=== PATIENT | male | born 1995 | race Caucasian/White ===

== ENCOUNTER 2017-05-14 00:03 | Emergency (ER) | payer MEDICAID ==
[~2017-05-14] VITALS: Ht 175.3 cm; Wt 77.3 kg
[2017-05-14 00:59] LABS: BASOPHILS % (AUTO) 0.3 % (0.0-2.0); EOSINOPHILS % (AUTO) 0.7 % (1.0-6.0); HEMATOCRIT 44.2 % (41-53); HEMOGLOBIN 15.3 g/dL (13.5-17.5); LYMPHOCYTES # (AUTO) 3.8 K/uL (1.0-4.8); LYMPHOCYTES % (AUTO) 23.7 % (22.0-44.0); MEAN CORPUSCULAR HEMOGLOBIN 29.4 pg (26.0-34.0); MEAN CORPUSCULAR HGB CONC 34.5 G/dL (31.0-37.0); MEAN CORPUSCULAR VOLUME 85 fL (80-100); MONOCYTES # (AUTO) 1.5 K/uL (0.1-1.0); MONOCYTES % (AUTO) 9.1 % (2.0-9.0); NEUTROPHILS # (AUTO) 10.6 K/uL (1.8-7.7); NEUTROPHILS % (AUTO) 66.2 % (40.0-70.0); PLATELET COUNT (AUTO) 275 K/uL (150-450); RED CELL DISTRIBUTION WIDTH 14.4 % (11.5-14.5)
[2017-05-14 01:11] LABS: ANION GAP 13 mmol/L (8-16); CALCIUM, TOTAL 9.6 mg/dL (8.8-10.5); CARBON DIOXIDE 27 mmol/L (22-29); CHLORIDE 100 mmol/L (98-107); CREATININE 1.27 mg/dL (0.60-1.30); GLOMERULAR FILTR. RATE CALC > 60 mL/min (>60); GLUCOSE,RANDOM 84 mg/dL (70-110); POTASSIUM 3.9 mmol/L (3.5-5.1); SODIUM SERUM 140 mmol/L (136-145); UREA NITROGEN, BLOOD 13 mg/dL (7-18)
[2017-05-14 01:26] LABS: ALANINE AMINOTRANSFERASE 23 U/L (12-78); ALBUMIN 4.5 g/dL (3.4-5.0); ALKALINE PHOSPHATASE 89 U/L (46-116); ASPARTATE AMINOTRANSFERASE 27 U/L (15-37); BILIRUBIN,TOTAL 0.9 mg/dL (0.1-1.0); TOTAL PROTEIN, SERUM 7.9 g/dL (6.4-8.2)
[2017-05-14 01:36] LABS: AMPHET/METH SCREEN,URINE POSITIVE (NEGATIVE); BARBITURATE SCREEN, URINE NEGATIVE (NEGATIVE); BENZODIAZEPINES SCREEN,URINE NEGATIVE (NEGATIVE); CANNABINOID SCREEN,URINE POSITIVE (NEGATIVE); COCAINE SCREEN,URINE POSITIVE (NEGATIVE); METHADONE SCREEN, URINE NEGATIVE (NEGATIVE); OPIATE SCREEN,URINE POSITIVE (NEGATIVE)
[2017-05-14 01:37] LABS: PHENCYCLIDINE SCREEN,URINE NEGATIVE (NEGATIVE)
[2017-05-14] MEDS ORDERED: HALOPERIDOL LACTATE 5 MG/ML VIAL IM ONE (02:00)
[2017-05-14] MEDS ORDERED: LORazepam 2 MG/ML VIAL IM ONE (02:00)
[2017-05-14 03:42] VITALS: BP 109/63
== END 2017-05-14 03:45 | disposition home or self-care (01) ==
LOC: EMS 00:04
DX: F41.9 Anxiety disorder, unspecified (principal); F19.10 Other psychoactive substance abuse, uncomplicated; F31.9 Bipolar disorder, unspecified; F20.9 Schizophrenia, unspecified; F17.210 Nicotine dependence, cigarettes, uncomplicated
CPT/HCPCS: 36415; 80053; 80307; 85025; 93005; 96372; 99285; G0480; J1630; J2060

== ENCOUNTER 2023-07-06 06:58 | Inpatient (IN) | payer MEDICAID ==
[~2023-07-06] VITALS: Ht 175.3 cm; Wt 77.3 kg
[2023-07-06 08:04] LABS: BASOPHILS % (AUTO) 0.6 % (0.0-2.0); EOSINOPHILS % (AUTO) 2.1 % (1.0-6.0); HEMATOCRIT 42.9 % (41-53); HEMOGLOBIN 14.5 g/dL (13.5-17.5); LYMPHOCYTES # (AUTO) 1.9 K/uL (1.0-4.8); LYMPHOCYTES % (AUTO) 14.1 % (22.0-44.0); MEAN CORPUSCULAR HEMOGLOBIN 29.5 pg (26.0-34.0); MEAN CORPUSCULAR HGB CONC 33.8 G/dL (31.0-37.0); MEAN CORPUSCULAR VOLUME 88 fL (80-100); MONOCYTES # (AUTO) 0.9 K/uL (0.1-1.0); NEUTROPHILS # (AUTO) 10.2 K/uL (1.8-7.7); NEUTROPHILS % (AUTO) 76.2 % (40.0-70.0); PLATELET COUNT (AUTO) 253 K/uL (150-450); RED CELL DISTRIBUTION WIDTH 14.5 % (11.5-14.5); WHITE BLOOD COUNT (AUTO) 13.4 K/uL (4.5-11.0)
[2023-07-06 08:14] LABS: ALCOHOL, BLOOD (SERUM) < 3 mg/dL (0-10); ANION GAP 11 mmol/L (8-16); CALCIUM, TOTAL 8.8 mg/dL (8.8-10.5); CARBON DIOXIDE 25 mmol/L (22-29); CHLORIDE 102 mmol/L (98-107); CREATININE 0.97 mg/dL (0.60-1.30); GLOMERULAR FILTR. RATE CALC > 60 mL/min (>60); GLUCOSE,RANDOM 89 mg/dL (70-110); POTASSIUM 3.9 mmol/L (3.5-5.1); SODIUM SERUM 138 mmol/L (136-145); UREA NITROGEN, BLOOD 13 mg/dL (7-18)
[2023-07-06 08:24] LABS: ALANINE AMINOTRANSFERASE 188 U/L (12-78); ALBUMIN 3.5 g/dL (3.4-5.0); ALKALINE PHOSPHATASE 92 U/L (46-116); ASPARTATE AMINOTRANSFERASE 85 U/L (15-37); BILIRUBIN,TOTAL 0.9 mg/dL (0.1-1.0); TOTAL PROTEIN, SERUM 7.9 g/dL (6.4-8.2)
[2023-07-06] MEDS ORDERED: ZOLPIDEM TARTRATE 10 MG TABLET PO PRN (10:15)
[2023-07-06] MEDS ORDERED: HALOPERIDOL 5 MG TABLET PO PRN (10:15)
[2023-07-06] MEDS ORDERED: LORazepam 2 MG TABLET PO PRN (10:15)
[2023-07-06 10:37] LABS: COVID AG,FIA SOURCE NASAL SWAB
[2023-07-06 10:57] LABS: SARS-COV2 (COVID) ANTIGEN,FIA Negative (Negative)
[2023-07-06] MEDS ORDERED: ONDANSETRON HCL 4 MG TABLET PO PRN (16:00)
[2023-07-06] MEDS ORDERED: MAG HYDROX/ALUMINUM HYD/SIMETH ES 30 ML SUSPENSION UDCUP PO PRN (16:00)
[2023-07-06] MEDS ORDERED: ACETAMINOPHEN 325 MG TABLET PO PRN (16:00)
[2023-07-06] MEDS ORDERED: BENZOCAINE/MENTHOL LOZENGE PO PRN (16:00)
[2023-07-06] MEDS ORDERED: PETROLATUM,WHITE 28 GM JELLY TP PRN (16:00)
[2023-07-06] MEDS ORDERED: OMEPRAZOLE 20 MG CAPSULE PO PRN (16:00)
[2023-07-06] MEDS ORDERED: MAGNESIUM HYDROXIDE SUSPENSION 30 ML UDCUP PO PRN (16:00)
[2023-07-06] MEDS ORDERED: DOCUSATE SODIUM 100 MG CAPSULE PO PRN (16:00)
[2023-07-06] MEDS ORDERED: CloNIDine HCL 0.1 MG TABLET PO PRN (16:00)
[2023-07-06] MEDS ORDERED: LOPERAMIDE HCL 2 MG CAPSULE PO PRN (16:00)
[2023-07-06] MEDS ORDERED: BENZOCAINE 10% 7 GM GEL TP PRN (16:00)
[2023-07-06] MEDS ORDERED: BACITRACIN 28 GM OINTMENT TP PRN (16:00)
[2023-07-06] MEDS ORDERED: ALBUTEROL SULFATE HFA 90 MCG/PUFF 8 GM INHALER IH PRN (16:00)
[2023-07-06] MEDS: IBUPROFEN 600 MG TABLET PO PRN (16:45)
[2023-07-06 17:03] VITALS: BP 130/76; PULSE 98; RESP 18; TEMP 98.6
[2023-07-06] MEDS: CHLORHEXIDINE GLUCONATE 0.12% 15 ML UDCUP ORAL RINSE PO SCH (17:30)
[2023-07-06 18:06] VITALS: RESP 17
[2023-07-06 21:19] VITALS: BP 145/89; PULSE 83; RESP 18; TEMP 98.3
[2023-07-07 00:35] VITALS: BP 127/83; PULSE 105; RESP 20; TEMP 99.5
[2023-07-07] MEDS: NICOTINE 21 MG/24 HOUR PATCH TD SCH (09:00)
[2023-07-07] MEDS: AMOXICILLIN TRIHYDRATE 500 MG CAPSULE PO SCH (09:00)
== END 2023-07-07 08:08 | disposition short-term general hospital (02) | DRG 750 ==
LOC: EMS 06:59 → B2S 10:54
PROVIDERS: ADMIT Psychiatry & Neurology Psychiatry; ATTEND Psychiatry & Neurology Psychiatry
DX: F25.9 Schizoaffective disorder, unspecified (principal); R45.851 Suicidal ideations; K05.6 Periodontal disease, unspecified; Z20.822 Contact with and (suspected) exposure to COVID-19; K59.00 Constipation, unspecified; F15.10 Other stimulant abuse, uncomplicated; F17.200 Nicotine dependence, unspecified, uncomplicated; G47.00 Insomnia, unspecified
CPT/HCPCS: 80053; 85025; 99285; G0480

== ENCOUNTER 2023-08-22 09:44 | Emergency (ER) | payer OTHER ==
[~2023-08-22] VITALS: Ht 175.3 cm; Wt 79.5 kg
[~2023-08-22 09:44] MED LIST: DIPH-1243 PO; VANC1.5P11 IVP
[2023-08-22 09:47] VITALS: TEMP 98.2
[2023-08-22 09:57] VITALS: BP 133/82; PULSE 98; RESP 18
== END 2023-08-22 10:40 | disposition home or self-care (01) ==
LOC: EMS 09:44
DX: Z45.2 Encounter for adjustment and management of vascular access device (principal); F15.10 Other stimulant abuse, uncomplicated; F17.210 Nicotine dependence, cigarettes, uncomplicated; Z88.6 Allergy status to analgesic agent; Z88.8 Allergy status to other drugs, medicaments and biological substances
CPT/HCPCS: 99281; Z7502

== ENCOUNTER 2023-09-06 18:52 | Emergency (ER) | payer OTHER ==
[~2023-09-06] VITALS: Ht 175.3 cm; Wt 79.5 kg
[2023-09-06 19:28] VITALS: TEMP 98.5
[2023-09-06 20:10] LABS: BAND NEUTROPHILS % (MANUAL) 0 % (0-5)
[2023-09-06 20:16] LABS: HEMATOCRIT 43.7 % (41-53); HEMOGLOBIN 14.5 g/dL (13.5-17.5); MEAN CORPUSCULAR HEMOGLOBIN 28.1 pg (26.0-34.0); MEAN CORPUSCULAR HGB CONC 33.3 G/dL (31.0-37.0); MEAN CORPUSCULAR VOLUME 84 fL (80-100); PLATELET COUNT (AUTO) 394 K/uL (150-450); RED BLOOD CELL COUNT(AUTO) 5.17 MIL/uL (4.50-5.90); RED CELL DISTRIBUTION WIDTH 15.7 % (11.5-14.5); WHITE BLOOD COUNT (AUTO) 10.4 K/uL (4.5-11.0)
[2023-09-06 20:16] LABS: COVID AG,FIA SOURCE NASAL SWAB
[2023-09-06 20:23] LABS: ANION GAP 10 mmol/L (8-16); CALCIUM, TOTAL 9.9 mg/dL (8.8-10.5); CARBON DIOXIDE 26 mmol/L (22-29); CHLORIDE 105 mmol/L (98-107); GLOMERULAR FILTR. RATE CALC > 60 mL/min (>60); GLUCOSE,RANDOM 101 mg/dL (70-110); POTASSIUM 3.8 mmol/L (3.5-5.1); SODIUM SERUM 141 mmol/L (136-145); UREA NITROGEN, BLOOD 17 mg/dL (7-18)
[2023-09-06 20:41] LABS: SARS-COV2 (COVID) ANTIGEN,FIA Negative (Negative)
[2023-09-06 20:46] LABS: BASOPHILS % (MANUAL) 1 % (0-2); EOSINOPHILS % (MANUAL) 3 % (1-6); LYMPHOCYTES % (MANUAL) 33 % (22-44); MONOCYTES % (MANUAL) 9 % (2-9); SEGMENTED NEUTROPHILS % 54 % (40-70); TOTAL CELLS COUNTED 100
[2023-09-06 20:47] LABS: RBC MORPHOLOGY COMMENT NORMAL RBC MORPH
[2023-09-06 20:48] VITALS: BP 121/76; PULSE 106; RESP 18
[2023-09-06 20:59] LABS: INFLUENZA TYPE A NEGATIVE FOR TYPE A (NEGATIVE); INFLUENZA TYPE B NEGATIVE FOR TYPE B (NEGATIVE)
[2023-09-06] MEDS: LORazepam 2 MG TABLET PO ONE (21:33)
== END 2023-09-06 22:00 | disposition home or self-care (01) ==
LOC: EMS 18:57
DX: F15.10 Other stimulant abuse, uncomplicated (principal); F41.9 Anxiety disorder, unspecified; F17.210 Nicotine dependence, cigarettes, uncomplicated; Z88.6 Allergy status to analgesic agent; Z88.8 Allergy status to other drugs, medicaments and biological substances; Z20.822 Contact with and (suspected) exposure to COVID-19
CPT/HCPCS: 71045; 80048; 85007; 85027; 87804; 93005; 99285; 36415-L1; 36415-TC

== ENCOUNTER 2024-03-20 19:51 | Emergency (ER) | payer OTHER ==
[~2024-03-20] VITALS: Ht 175.3 cm; Wt 81.8 kg
[~2024-03-20 19:51] MED LIST changes: -DIPH-1243 PO; +DIVA-153 PO; +MELA5TAB40 PO; +NALT50TA33 PO; +OLAN5TAB94 PO; -VANC1.5P11 IVP
[2024-03-20 20:17] VITALS: TEMP 99.4
[2024-03-21] MEDS ORDERED: AMOX250C4 PO (00:49)
[2024-03-21] MEDS: LORazepam 1 MG TABLET PO ONE (00:58)
[2024-03-21] MEDS: DEXAMETHASONE 4 MG TABLET PO ONE (01:00)
[2024-03-21 01:05] VITALS: BP 131/103; PULSE 96; RESP 20; O2SAT 98
== END 2024-03-21 01:16 | disposition home or self-care (01) ==
LOC: EMS 19:51
DX: J02.9 Acute pharyngitis, unspecified (principal); F20.9 Schizophrenia, unspecified; F31.9 Bipolar disorder, unspecified; F17.210 Nicotine dependence, cigarettes, uncomplicated; F12.90 Cannabis use, unspecified, uncomplicated; F15.90 Other stimulant use, unspecified, uncomplicated
CPT/HCPCS: 99283

== ENCOUNTER 2024-08-11 16:44 | Inpatient (IN) | payer MEDICAID ==
[~2024-08-11] VITALS: Ht 175.3 cm; Wt 78.9 kg
[~2024-08-11 16:44] MED LIST changes: +AMOX250C4 PO
[2024-08-11 18:00] LABS: GLUCOMETER DEV NAME(LOC) POC.BV; POC SARS-COV2 AG, FIA NEGATIVE (NEGATIVE)
[2024-08-11] MEDS: ZOLPIDEM TARTRATE 10 MG TABLET PO PRN (20:09)
[2024-08-11] MEDS: LORazepam 2 MG TABLET PO PRN (20:09)
[2024-08-11] MEDS ORDERED: ACETAMINOPHEN 325 MG TABLET PO PRN (20:15)
[2024-08-11] MEDS ORDERED: ALBUTEROL SULFATE HFA 90 MCG/PUFF 8 GM INHALER IH PRN (20:15)
[2024-08-11] MEDS ORDERED: PETROLATUM,WHITE 28 GM JELLY TP PRN (20:15)
[2024-08-11] MEDS ORDERED: ONDANSETRON 4 MG TABLET PO PRN (20:15)
[2024-08-11] MEDS ORDERED: LOPERAMIDE HCL 2 MG CAPSULE PO PRN (20:15)
[2024-08-11] MEDS ORDERED: DOCUSATE SODIUM 100 MG CAPSULE PO PRN (20:15)
[2024-08-11] MEDS ORDERED: NICOTINE 14 MG/24 HOUR PATCH TD PRN (20:15)
[2024-08-11] MEDS ORDERED: GuaiFENesin/D-METHORPHAN [SUGAR-FREE] 200-20MG/10 ML SYRUP UDCUP PO PRN (20:15)
[2024-08-11] MEDS ORDERED: MAGNESIUM HYDROXIDE SUSPENSION 30 ML UDCUP PO PRN (20:15)
[2024-08-11] MEDS ORDERED: MAG HYDROX/ALUMINUM HYD/SIMETH ES 30 ML SUSPENSION UDCUP PO PRN (20:15)
[2024-08-11] MEDS ORDERED: CloNIDine HCL 0.1 MG TABLET PO PRN (20:15)
[2024-08-11 20:48] VITALS: BP 122/77; PULSE 89; RESP 16; TEMP 97.7; O2SAT 100
[2024-08-12 08:35] LABS: BASOPHILS % (AUTO) 0.1 % (0.0-2.0); EOSINOPHILS % (AUTO) 2.9 % (1.0-6.0); HEMATOCRIT 39.2 % (41-53); LYMPHOCYTES # (AUTO) 1.7 K/uL (1.0-4.8); LYMPHOCYTES % (AUTO) 19.7 % (22.0-44.0); MEAN CORPUSCULAR HEMOGLOBIN 27.1 pg (26.0-34.0); MEAN CORPUSCULAR HGB CONC 33.2 G/dL (31.0-37.0); MEAN CORPUSCULAR VOLUME 82 fL (80-100); MONOCYTES # (AUTO) 0.6 K/uL (0.1-1.0); MONOCYTES % (AUTO) 7.5 % (2.0-9.0); NEUTROPHILS % (AUTO) 69.8 % (40.0-70.0); PLATELET COUNT (AUTO) 345 K/uL (150-450); RED CELL DISTRIBUTION WIDTH 15.9 % (11.5-14.5); WHITE BLOOD COUNT (AUTO) 8.6 K/uL (4.5-11.0)
[2024-08-12 08:38] VITALS: BP 116/80; PULSE 88; RESP 18; TEMP 98.2; O2SAT 87
[2024-08-12 08:39] LABS: HEMOGLOBIN A1C 5.7 % (3.8-5.6)
[2024-08-12 08:55] LABS: ALANINE AMINOTRANSFERASE 90 U/L (12-78); ALBUMIN 2.7 g/dL (3.4-5.0); ALKALINE PHOSPHATASE 116 U/L (46-116); ANION GAP 7 mmol/L (8-16); ASPARTATE AMINOTRANSFERASE 42 U/L (15-37); BILIRUBIN,TOTAL 0.3 mg/dL (0.1-1.0); CALCIUM, TOTAL 8.6 mg/dL (8.8-10.5); CARBON DIOXIDE 28 mmol/L (22-29); CHLORIDE 103 mmol/L (98-107); CHOL/HDL RATIO 3.1 (4.2-7.3); CHOLESTEROL 146 mg/dL (131-200); CREATININE 0.76 mg/dL (0.60-1.30); FREE T4 (FREE THYROXINE) 1.07 ng/dL (0.76-1.46); GLOMERULAR FILTR. RATE CALC > 60 mL/min (>60); GLUCOSE,RANDOM 111 mg/dL (70-110); HDL CHOLESTEROL 47 mg/dL (40-60); LDL CHOL (CALC.) 87 mg/dL (0-130); POTASSIUM 4.1 mmol/L (3.5-5.1); SODIUM SERUM 138 mmol/L (136-145); THYROID STIMULATING HORMONE 0.46 uIU/mL (0.36-3.74); TOTAL PROTEIN, SERUM 7.3 g/dL (6.4-8.2); TRIGLYCERIDES 62 mg/dL (15-150); UREA NITROGEN, BLOOD 8 mg/dL (7-18)
[2024-08-12 09:39] VITALS: BP 121/78; PULSE 100; RESP 18; TEMP 97.5; O2SAT 96
[2024-08-12] MEDS: NALTREXONE HCL 50 MG TABLET PO SCH (15:10)
[2024-08-12] MEDS: haloperidoL 5 MG TABLET PO PRN (17:44)
[2024-08-12] MEDS ORDERED: ChlorproMAZINE HCL 50 MG/2 ML AMP ONE (19:31)
[2024-08-12] MEDS: DiphenhydrAMINE HCL 50 MG/ML VIAL IM ONE (19:42)
[2024-08-12] MEDS: ChlorproMAZINE HCL 50 MG/2 ML AMP IM ONE (19:42)
[2024-08-12 20:15] VITALS: BP 133/73; PULSE 92; RESP 17; TEMP 97.3; O2SAT 100
[2024-08-12] MEDS: DIVALPROEX SODIUM 500 MG ER TABLET PO SCH (20:33)
[2024-08-12] MEDS: MELATONIN 5 MG TABLET PO SCH (20:33)
[2024-08-12] MEDS: OLANZapine 7.5 MG TABLET PO SCH (20:33)
[2024-08-13 08:11] VITALS: BP 124/96; PULSE 98; RESP 18; TEMP 97.5; O2SAT 100
[2024-08-13 20:32] VITALS: BP 129/82; PULSE 77; RESP 18; TEMP 97.8; O2SAT 99
[2024-08-14 08:53] VITALS: BP 118/70; PULSE 89; RESP 17; TEMP 97.6; O2SAT 99
[2024-08-14 20:04] VITALS: BP 108/64; PULSE 86; RESP 16; TEMP 98.2; O2SAT 98
[2024-08-15 08:12] VITALS: BP 114/61; PULSE 84; RESP 17; TEMP 97.6; O2SAT 98
[2024-08-15 20:28] VITALS: BP 121/71; PULSE 92; RESP 16; TEMP 97.9; O2SAT 99
[2024-08-16 08:20] VITALS: BP 117/60; PULSE 74; RESP 17; TEMP 97.2; O2SAT 98
[2024-08-16] MEDS: IBUPROFEN 400 MG TABLET PO PRN (15:49)
== END 2024-08-16 17:30 | disposition left against medical advice (07) | DRG 750 ==
LOC: B3A 17:39
PROVIDERS: ADMIT Psychiatry & Neurology Child & Adolescent Psychiatry; ATTEND Psychiatry & Neurology Child & Adolescent Psychiatry
PROC: GZ52ZZZ Individual Psychotherapy, Cognitive (ICD-10-PCS; principal; 2024-08-12)
DX: F25.9 Schizoaffective disorder, unspecified (principal); D64.9 Anemia, unspecified; F19.10 Other psychoactive substance abuse, uncomplicated; G47.00 Insomnia, unspecified; I10 Essential (primary) hypertension; Z87.01 Personal history of pneumonia (recurrent); Z88.1 Allergy status to other antibiotic agents
CPT/HCPCS: 71046; 80053; 80061; 80164; 83036; 84439; 84443; 85025; J1200; J3230; 36415-L1; 36415-TC

== ENCOUNTER 2025-02-03 16:14 | Inpatient (IN) | payer MEDICAID, OTHER ==
[~2025-02-03] VITALS: Ht 175.3 cm; Wt 69.0 kg
[~2025-02-03 16:14] MED LIST changes: -AMOX250C4 PO
[2025-02-03 17:02] LABS: PLATELET COUNT (AUTO) 307 K/uL (150-450); RED BLOOD CELL COUNT(AUTO) 4.04 MIL/uL (4.50-5.90); RED CELL DISTRIBUTION WIDTH 17.4 % (11.5-14.5); WHITE BLOOD COUNT (AUTO) 15.2 K/uL (4.5-11.0)
[2025-02-03 17:06] LABS: CALCIUM, TOTAL 8.7 mg/dL (8.8-10.5); CREATININE 1.48 mg/dL (0.60-1.30); GLOMERULAR FILTR. RATE CALC 56.0 mL/min (>60); GLUCOSE,RANDOM 105.0 mg/dL (70-110); SODIUM SERUM 141.0 mmol/L (136-145); UREA NITROGEN, BLOOD 24.0 mg/dL (7-18)
[2025-02-03 17:13] LABS: PLATELET MORPHOLOGY COMMENT LARGE PLTS PRESENT; RBC MORPHOLOGY COMMENT NORMAL RBC MORPH
[2025-02-03 17:16] LABS: COVID AG,FIA SOURCE NASAL SWAB
[2025-02-03 17:39] LABS: SARS-COV2 (COVID) ANTIGEN,FIA Negative (Negative)
[2025-02-03 20:42] VITALS: O2SAT 99
[2025-02-03 22:19] VITALS: BP 133/93; PULSE 84; RESP 18; TEMP 97.8; O2SAT 100
[2025-02-03] MEDS: ZOLPIDEM TARTRATE 10 MG TABLET PO PRN (23:06)
[2025-02-03] MEDS ORDERED: INFLUENZA VIRUS VACCINE TVS (6MO+) 2025-26/PF 45 MCG/0.5 ML SYRINGE IM. ONE (23:30)
[2025-02-04 08:37] VITALS: BP 143/91; PULSE 95; RESP 18; TEMP 98.6; O2SAT 99
[2025-02-04 08:58] LABS: CHOL/HDL RATIO 2.2 (4.2-7.3); LDL CHOL (CALC.) 65.0 mg/dL (0-130)
[2025-02-04] MEDS ORDERED: DOCUSATE SODIUM 100 MG CAPSULE PO PRN (09:00)
[2025-02-04] MEDS ORDERED: OMEPRAZOLE 20 MG CAPSULE PO PRN (09:00)
[2025-02-04] MEDS ORDERED: BACITRACIN 28 GM OINTMENT TP PRN (09:00)
[2025-02-04] MEDS ORDERED: PETROLATUM,WHITE 28 GM JELLY TP PRN (09:00)
[2025-02-04] MEDS ORDERED: LOPERAMIDE HCL 2 MG CAPSULE PO PRN (09:00)
[2025-02-04] MEDS ORDERED: ALBUTEROL SULFATE HFA 90 MCG/PUFF 8 GM INHALER IH PRN (09:00)
[2025-02-04] MEDS ORDERED: ACETAMINOPHEN 325 MG TABLET PO PRN (09:00)
[2025-02-04] MEDS ORDERED: ONDANSETRON 4 MG TABLET PO PRN (09:00)
[2025-02-04] MEDS ORDERED: BENZOCAINE/MENTHOL [CEPACOL] LOZENGE PO PRN (09:00)
[2025-02-04] MEDS ORDERED: MAG HYDROX/ALUMINUM HYD/SIMETH ES 30 ML SUSPENSION UDCUP PO PRN (09:00)
[2025-02-04] MEDS ORDERED: MAGNESIUM HYDROXIDE SUSPENSION 30 ML UDCUP PO PRN (09:00)
[2025-02-04] MEDS ORDERED: IBUPROFEN 600 MG TABLET PO PRN (09:00)
[2025-02-04 20:23] VITALS: BP 144/80; PULSE 67; RESP 18; TEMP 98.3; O2SAT 100
[2025-02-04] MEDS: OLANZapine 7.5 MG TABLET PO SCH (20:52)
[2025-02-04] MEDS: DIVALPROEX SODIUM 500 MG DR TABLET PO SCH (20:52)
[2025-02-05 03:08] LABS: HEPATITIS C AB (EIA) Reactive (Non Reactive)
[2025-02-05 08:28] LABS: PLATELET COUNT (AUTO) 300 K/uL (150-450); RED BLOOD CELL COUNT(AUTO) 4.21 MIL/uL (4.50-5.90); RED CELL DISTRIBUTION WIDTH 17.1 % (11.5-14.5); WHITE BLOOD COUNT (AUTO) 8.4 K/uL (4.5-11.0)
[2025-02-05 08:45] LABS: ASPARTATE AMINOTRANSFERASE 50 U/L (15-37); CALCIUM, TOTAL 8.7 mg/dL (8.8-10.5); CREATININE 0.75 mg/dL (0.60-1.30); GLOMERULAR FILTR. RATE CALC > 60 mL/min (>60); GLUCOSE,RANDOM 101 mg/dL (70-110); PHOSPHORUS 2.5 mg/dL (2.5-4.9); SODIUM SERUM 140 mmol/L (136-145); TOTAL PROTEIN, SERUM 7.5 g/dL (6.4-8.2); UREA NITROGEN, BLOOD 11 mg/dL (7-18)
[2025-02-05 09:36] VITALS: BP 123/89; PULSE 73; RESP 18; TEMP 98; O2SAT 99
[2025-02-05] MEDS: NICOTINE POLACRILEX 4 MG LOZENGE PO PRN (12:40)
[2025-02-05 20:15] VITALS: BP 130/79; PULSE 78; RESP 18; TEMP 98.9; O2SAT 98
[2025-02-06 08:12] VITALS: BP 137/86; PULSE 85; RESP 18; TEMP 98.1; O2SAT 98
[2025-02-06 20:05] VITALS: BP 143/82; PULSE 85; RESP 20; TEMP 97.3; O2SAT 100
[2025-02-07 08:18] VITALS: BP 143/92; PULSE 73; RESP 18; TEMP 98; O2SAT 100
[2025-02-07 17:07] LABS: HEPATITIS C RT-PCR,QNT 2360000 IU/mL
[2025-02-07 20:12] VITALS: BP 145/73; PULSE 86; RESP 20; TEMP 98; O2SAT 100
[2025-02-08 08:32] VITALS: BP 134/74; PULSE 86; RESP 18; TEMP 97.9; O2SAT 98
[2025-02-08] MEDS ORDERED: DIVA-112 PO (16:29)
[2025-02-08] MEDS ORDERED: OLAN7.5T22 PO (16:30)
== END 2025-02-08 17:58 | disposition home or self-care (01) | DRG 750 ==
LOC: EMS 16:16 → B3A 20:05
PROVIDERS: ADMIT Psychiatry & Neurology Psychiatry; ATTEND Psychiatry & Neurology Psychiatry
DX: F20.9 Schizophrenia, unspecified (principal); D64.9 Anemia, unspecified; F15.10 Other stimulant abuse, uncomplicated; D72.829 Elevated white blood cell count, unspecified; F11.90 Opioid use, unspecified, uncomplicated; F12.90 Cannabis use, unspecified, uncomplicated; Z20.822 Contact with and (suspected) exposure to COVID-19; K59.00 Constipation, unspecified; G47.00 Insomnia, unspecified; R03.0 Elevated blood-pressure reading, without diagnosis of hypertension; F17.200 Nicotine dependence, unspecified, uncomplicated; F41.9 Anxiety disorder, unspecified
CPT/HCPCS: 80048; 80053; 80061; 83036; 83735; 84100; 84439; 84443; 85025; 86803; 87340; 87522; 99285; G0480